=== PATIENT | female | born 1995 | race Two or more races ===

== ENCOUNTER 2021-10-01 15:14 | Inpatient (IN) | payer OTHER ==
[~2021-10-01] VITALS: Ht 162.6 cm; Wt 74.4 kg
[2021-10-01] MEDS ORDERED: PRENA1 TRUE CO1 EACH PO (16:04)
== END 2021-10-05 11:31 | disposition home or self-care (01) | DRG 417 ==
LOC: ER 15:14 → MEDJ 10-02 03:23 → MEDI 10-02 03:23 → MEDJ 10-02 03:50
PROVIDERS: Surgery; ADMIT Internal Medicine; ATTEND Internal Medicine
PROC: BW40ZZZ Ultrasonography of Abdomen (ICD-10-PCS; 2021-10-01)
PROC: BF37ZZZ Magnetic Resonance Imaging (MRI) of Pancreas (ICD-10-PCS; 2021-10-01)
PROC: 0FT44ZZ Resection of Gallbladder, Percutaneous Endoscopic Approach (ICD-10-PCS; principal; 2021-10-04 16:00)
DX: K80.20 Calculus of gallbladder without cholecystitis without obstruction (principal); K85.90 Acute pancreatitis without necrosis or infection, unspecified; Z20.822 Contact with and (suspected) exposure to COVID-19

== ENCOUNTER 2024-12-04 08:22 | Outpatient (CLI) | payer OTHER ==
[~2024-12-04 08:22] MED LIST: PRENA1 TRUE CO1 EACH PO
== END 2024-12-04 08:23 | disposition home or self-care (01) ==
LOC: PRENATAL 08:22
PROVIDERS: ATTEND Obstetrics & Gynecology Maternal & Fetal Medicine
DX: O36.80X0 Pregnancy with inconclusive fetal viability, not applicable or unspecified (principal); Z36.82 Encounter for antenatal screening for nuchal translucency; Z14.8 Genetic carrier of other disease; Z3A.11 11 weeks gestation of pregnancy

== ENCOUNTER 2025-02-07 07:35 | Outpatient (CLI) | payer OTHER | END 2025-02-07 07:36 | disposition home or self-care (01) | LOC: PRENATAL 07:35 | PROVIDERS: ATTEND Obstetrics & Gynecology Maternal & Fetal Medicine | DX: O44.02 Complete placenta previa NOS or without hemorrhage, second trimester (principal); O34.219 Maternal care for unspecified type scar from previous cesarean delivery; Z3A.21 21 weeks gestation of pregnancy ==